=== PATIENT | female | born 1970 | race American Indian/Alaskan Native ===

== ENCOUNTER 2016-05-28 08:50 | Emergency (ER) | payer SELFPAY ==
[2016-05-28 09:06] VITALS: BP 119/65
--- NOTE | 2016-05-28 09:36 | Emergency Department Report ---
ED Back Pain/Injury HPI - General Chief Complaint: Back Pain/Injury Stated Complaint: BACK INJURY Time Seen by Provider: 05/28/16 09:35 Source: patient Limitations: No Limitations - History of Present Illness MD Complaint: back pain, back injury -: Sudden, hour(s) Similar Symptoms Previously: Yes Place: work Radiation: buttocks, left leg Severity: severe Quality: aching Consistency: constant Associated Symptoms: denies: numbness, difficulty walking, difficulty urinating , incontinence, fever/chills, nausea/vomiting - Related Data Previous Rx's Medication Instructions Recorded Last Taken Type Metaxalone [Skelaxin] 800 mg PO TID #15 tablet 05/28/16 Unknown Rx traMADol [Ultram 50 MG tab] 50 mg PO Q4HR PRN #15 tablet 05/28/16 Unknown Rx Allergies Allergy/AdvReac Type Severity Reaction Status Date / Time aspirin AdvReac HURTS Verified 05/28/16 09:08 STOMACH ED Review of Systems ROS: Stated complaint: BACK INJURY Other details as noted in HPI Constitutional: denies: chills, fever Eyes: denies: eye pain, eye discharge, vision change ENT: denies: ear pain, throat pain Respiratory: denies: cough, shortness of breath, wheezing Cardiovascular: denies: chest pain Gastrointestinal: denies: abdominal pain, nausea, vomiting, diarrhea Genitourinary: denies: dysuria Musculoskeletal: back pain Neurological: denies: headache, numbness, paresthesias, abnormal gait ED Past Medical Hx - Past Medical History Hx Diabetes: Yes - Surgical History Past Surgical History?: No - Social History Smoking Status: Never Smoker Substance Use Type: None - Medications Home Medications: Home Medications Medication Instructions Recorded Confirmed Last Taken Type Metaxalone [Skelaxin] 800 mg PO TID #15 tablet 05/28/16 Unknown Rx traMADol [Ultram 50 MG tab] 50 mg PO Q4HR PRN #15 tablet 05/28/16 Unknown Rx ED Physical Exam - General Limitations: No Limitations General appearance: alert, in no apparent distress - Head Head exam: Present: atraumatic, normocephalic - Eye Eye exam: Present: normal appearance - ENT ENT exam: Present: mucous membranes moist - Neck Neck exam: Present: normal inspection - Respiratory Respiratory exam: Present: normal lung sounds bilaterally. Absent: respiratory distress, wheezes, rales, rhonchi, stridor - Cardiovascular Cardiovascular Exam: Present: regular rate - GI/Abdominal GI/Abdominal exam: Present: soft. Absent: distended, tenderness, guarding, rebound, rigid - Extremities Exam Extremities exam: Present: normal inspection - Back Exam Back exam: Present: tenderness, paraspinal tenderness. Absent: CVA tenderness ( R), CVA tenderness (L), vertebral tenderness - Neurological Exam Neurological exam: Present: alert, oriented X3. Absent: abnormal gait ED Course Vital Signs 05/28/16 08:59 Temperature 99.5 F Pulse Rate 69 Respiratory 20 Rate Blood Pressure 119/65 O2 Sat by Pulse 100 Oximetry Critical care attestation.: If time is entered above; I have spent that time in minutes in the direct care of this critically ill patient, excluding procedure time. ED Disposition Clinical Impression: Back strain Disposition: DISCHARGED TO HOME OR SELFCARE Is pt being admited?: No Condition: Stable Instructions: Muscle Strain (ED) Prescriptions: Metaxalone [Skelaxin] 800 mg PO TID #15 tablet traMADol [Ultram 50 MG tab] 50 mg PO Q4HR PRN #15 tablet PRN Reason: Pain Referrals: PRIMARY CARE, [Primary Care Provider] - 3-5 Days Forms: Work/School Release Form(ED)
[2016-05-28] MEDS ORDERED: NORCO 5/325 PO ONE (09:52)
[2016-05-28] MEDS ORDERED: FLEXERIL PO ONE (09:52)
--- NOTE | 2016-05-28 10:39 | XRay Report ---
LUMBAR SPINE RADIOGRAPHS: INDICATION: Injury. COMPARISON: None similar. FINDINGS: AP and lateral lumbar spine radiographs demonstrate preserved vertebral body stature, alignment and disc heights. Nonobstructive bowel gas pattern. Constipation not excluded. Normal bilateral SI joints. Clear visualized lung bases. CONCLUSION: No acute lumbar radiographic abnormality. Thank you for the opportunity to participate in this patient's care.
--- NOTE | 2016-05-28 10:41 | XRay Report ---
THORACIC SPINE RADIOGRAPHS INDICATION: Injury. COMPARISON: None similar. FINDINGS: AP and lateral views to evaluate thoracic spine demonstrate preserved vertebral body stature and alignment. Normal disc heights. Symmetric pedicles. Intact costovertebral articulations. No abnormal paraspinal density. Normal imaged heart. Clear visualized lungs. CONCLUSION: Normal thoracic spine radiographs, as described. Thank you for the opportunity to participate in this patient's care.
== END 2016-05-28 11:00 | disposition home or self-care (01) ==
LOC: ED 08:50
DX: S39.012A Strain of muscle, fascia and tendon of lower back, initial encounter (principal); E11.9 Type 2 diabetes mellitus without complications; Y93.89 Activity, other specified; X58.XXXA Exposure to other specified factors, initial encounter; Z88.6 Allergy status to analgesic agent; Y92.89 Other specified places as the place of occurrence of the external cause; Y99.8 Other external cause status
CPT/HCPCS: 72070; 72100

== ENCOUNTER 2019-12-06 10:00 | Outpatient (CLI) | payer OTHER ==
--- NOTE | 2019-12-06 12:37 | Mammography Report ---
DIGITAL LEFT DIAGNOSTIC MAMMOGRAM WITH CAD, WITHOUT TOMOSYNTHESIS 12/06/2019 INDICATION: Post ultrasound-guided biopsy x2 TECHNIQUE: Digital left mammographic imaging was performed. This examination was interpreted with the benefit of Computer-aided Detection analysis. COMPARISON: Left mammogram 11/02/2019 Breast Density: The breasts are heterogeneously dense, which may obscure small masses. FINDINGS: Biopsy clips are now seen associated with the most superior in the most inferior of these 3 nodules noted previously. The third nodule more centrally is less apparent but could be obscured str anding related to the procedure. IMPRESSION: Appropriate clip placement Follow up recommendation: Per biopsy results Post biopsy imaging. A "normal" or negative report should not discourage follow up or biopsy of a clinically significant f inding. A written summary of these findings will be mailed to the patient. The patient will be entered into a mammography reporting system which will generate a reminder letter for the patient's next appointmen t at the appropriate interval. According to the [employer], yearly mammograms are recommended starting at age 40 and continuing as long as a woman is in good health. Breast MRI is recommended for women with an oleg roximately 20-25% or greater lifetime risk of breast cancer, including women with a strong family his tory of breast or ovarian cancer and women who have been treated for Hodgkin's disease. Signer Name: Srinivasa Cuevas MD Signed: 12/06/2019 12:32 PM Workstation Name: [id number]
--- NOTE | 2019-12-06 12:40 | Ultrasound Report ---
ULTRASOUND-GUIDED LEFT BREAST BIOPSY x2 INDICATION: Mildly suspicious left breast nodules on outside imaging COMPARISON: Outside left breast ultrasound 11/02/2019, outside left mammogram 11/02/2019 CONSENT: Procedure was discussed at length in advance with the patient. Possible risks and benefits w ere discussed including the possibility of bleeding. Postbiopsy care was discussed. Opportunity for q uestions was provided. Patient is not on anticoagulant therapy and reports no pertinent allergies. PROCEDURE: Timeout was performed. The areas of concern at 10:00 then subareolar 9:00 were separately targeted sonographically. Using aseptic technique and under local anesthesia, with real-time sonograp hic guidance, the nodules were biopsied. Multiple specimens were obtained with a 14-gauge Achieve and Bard biopsy devices and sent to pathology for analysis. A metallic clip was placed at the end of the procedure at each site. Sites were secured and the patient was sent for post biopsy mammogram. Jocelyn nt tolerated the procedure well and left the department in good condition. IMPRESSION: Successful ultrasound-guided left breast biopsy x2 Signer Name: Srinivasa Cuevas MD Signed: 12/06/2019 12:35 PM Workstation Name: [id number]
--- NOTE | 2019-12-08 13:15 | Ultrasound Report ---
DIGITAL LEFT DIAGNOSTIC MAMMOGRAM WITH CAD, WITHOUT TOMOSYNTHESIS 12/06/2019 INDICATION: Post ultrasound-guided biopsy x2 TECHNIQUE: Digital left mammographic imaging was performed. This examination was interpreted with the benefit of Computer-aided Detection analysis. COMPARISON: Left outside mammogram 11/02/2019 Breast Density: The breasts are heterogeneously dense, which may obscure small masses. FINDINGS: Biopsy clips are now seen associated with the most superior in the most inferior of these 3 nodules noted previously. The third nodule more centrally is less apparent but could be obscured str anding related to the procedure. IMPRESSION: Clip placement appears appropriate Follow up recommendation: Per biopsy results Post biopsy imaging. A "normal" or negative report should not discourage follow up or biopsy of a clinically significant f inding. A written summary of these findings will be mailed to the patient. The patient will be entered into a mammography reporting system which will generate a reminder letter for the patient's next appointmen t at the appropriate interval. According to the [employer], yearly mammograms are recommended starting at age 40 and continuing as long as a woman is in good health. Breast MRI is recommended for women with an oleg roximately 20-25% or greater lifetime risk of breast cancer, including women with a strong family his tory of breast or ovarian cancer and women who have been treated for Hodgkin's disease. Signer Name: Srinivasa Cuevas MD Signed: 12/06/2019 12:11 PM Workstation Name: [id number]
== END 2019-12-06 10:01 | disposition home or self-care (01) ==
LOC: SPVWC 10:00
PROVIDERS: ATTEND Surgery
DX: N63.22 Unspecified lump in the left breast, upper inner quadrant (principal); D24.2 Benign neoplasm of left breast; E11.9 Type 2 diabetes mellitus without complications; E78.5 Hyperlipidemia, unspecified; I71.02 Dissection of abdominal aorta; Z79.899 Other long term (current) drug therapy; Z87.01 Personal history of pneumonia (recurrent); Z88.6 Allergy status to analgesic agent; Z79.84 Long term (current) use of oral hypoglycemic drugs
CPT/HCPCS: 88305

== ENCOUNTER 2019-12-13 09:59 | Outpatient (CLI) | payer OTHER ==
--- NOTE | 2019-12-13 12:30 | Mammography Report ---
DIGITAL DIAGNOSTIC MAMMOGRAM WITH CAD, -- 12/13/2019 INDICATION: Postbiopsy mammogram following right breast ultrasound-guided biopsy. TECHNIQUE: Digital right mammographic imaging was performed. This examination was interpreted with the benefit of Computer-aided Detection analysis. COMPARISON: Prior mammograms 10/05/2019 and 11/02/2019 FINDINGS: Breast Density: The breasts are heterogeneously dense, which may obscure small masses. Postbiopsy mammogram reveals a biopsy clip appropriately positioned at site of previously described l obulated oval mass in the 7-8 o'clock right breast. IMPRESSION: 1. Appropriately positioned biopsy clip following right breast ultrasound-guided biopsy. Follow up recommendation: No recall. Post biopsy imaging. A "normal" or negative report should not discourage follow up or biopsy of a clinically significant f inding. A written summary of these findings will be mailed to the patient. The patient will be entered into a mammography reporting system which will generate a reminder letter for the patient's next appointmen t at the appropriate interval. According to the [employer], yearly mammograms are recommended starting at age 40 and continuing as long as a woman is in good health. Breast MRI is recommended for women with an oleg roximately 20-25% or greater lifetime risk of breast cancer, including women with a strong family his tory of breast or ovarian cancer and women who have been treated for Hodgkin's disease. Signer Name: Eulalia Tim MD Signed: 12/13/2019 12:25 PM Workstation Name: [id number]
--- NOTE | 2019-12-13 16:52 | Ultrasound Report ---
RIGHT BREAST ULTRASOUND GUIDED BIOPSY The procedure was explained to the patient and informed consent obtained. PROCEDURE: Using sonographic guidance, the lesion in the 8:00 position of the right breast was ident ified. 5 mL of 1% buffered lidocaine and 5 mL 1% lidocaine with epinephrine was administered and a s mall skin roberto was made with a scalpel. Using a 14 gauge biopsy device, multiple core biopsy samples were obtained. The specimens were placed in a 10% formalin solution and sent for histologic analysis . A radio opaque marker clip was placed at the biopsy site. Pressure was held on the biopsy site utilizing the sterile 4 x 4 gauze until all bleeding subsided. A gauze dressing was placed over the biopsy site to provide a pressure dressing. Postbiopsy instructio ns were reviewed with the patient and a copy given to her. No immediate complications occurred. INTERPRETATION: Images made real-time during the procedure demonstrate the biopsy device to be appro priately centered within the lesion. Impression: 1. Successful right breast ultrasound-guided biopsy. Pathology pending. Signer Name: Eulalia Tim MD Signed: 12/13/2019 4:47 PM Workstation Name: [id number]
== END 2019-12-13 10:00 | disposition home or self-care (01) ==
LOC: SPVWC 09:59
PROVIDERS: ATTEND Surgery
DX: N63.13 Unspecified lump in the right breast, lower outer quadrant (principal); E11.9 Type 2 diabetes mellitus without complications; E78.5 Hyperlipidemia, unspecified; Z79.84 Long term (current) use of oral hypoglycemic drugs; Z79.899 Other long term (current) drug therapy; Z88.6 Allergy status to analgesic agent; Z87.01 Personal history of pneumonia (recurrent)
CPT/HCPCS: 88305

== ENCOUNTER 2020-10-17 00:07 | Emergency (ER) | payer OTHER ==
[2020-10-17 02:02] VITALS: BP 106/53
[2020-10-17 02:19] LABS: Basophils # (Auto) 0.1 K/mm3 (0.0-0.1); Basophils % (Auto) 0.6 % (0.0-1.8); Eosinophils # (Auto) 0.2 K/mm3 (0.0-0.4); Eosinophils % (Auto) 2.7 % (0.0-4.3); Hematocrit 35.9 % (30.3-42.9); Hemoglobin 11.7 gm/dl (10.1-14.3); Lymphocytes # (Auto) 3.4 K/mm3 (1.2-5.4); Lymphocytes % (Auto) 40.7 % (13.4-35.0); Mean Corpuscular HGB Conc 33 % (30-34); Mean Corpuscular Volume 83 fl (79-97); Monocytes # (Auto) 0.5 K/mm3 (0.0-0.8); Monocytes % (Auto) 5.5 % (0.0-7.3); Platelet Count 268 K/mm3 (140-440); Red Blood Count 4.32 M/mm3 (3.65-5.03); Red Cell Distribution Width 14.2 % (13.2-15.2)
--- NOTE | 2020-10-17 02:38 | XRay Report ---
CHEST 2 VIEWS INDICATION / CLINICAL INFORMATION: CP. COMPARISON: None available. FINDINGS: SUPPORT DEVICES: None. HEART / MEDIASTINUM: No significant abnormality. LUNGS / PLEURA: No significant pulmonary or pleural abnormality. No pneumothorax. ADDITIONAL FINDINGS: No significant additional findings. IMPRESSION: 1. No acute findings. Signer Name: Herbert Urena MD Signed: 10/17/2020 2:34 AM Workstation Name: [id number]
[2020-10-17 02:42] LABS: Alanine Aminotransferase 10 units/L (7-56); Albumin 4.5 g/dL (3.9-5); Blood Urea Nitrogen 8 mg/dL (7-17); Calcium 9.2 mg/dL (8.4-10.2); Hemolysis Index 3
[2020-10-17 02:56] LABS: BUN/Creatinine Ratio 13
--- NOTE | 2020-10-18 10:01 | Electrocardiograph Report ---
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
== END 2020-10-17 10:27 | disposition left against medical advice (07) ==
LOC: ED 00:07
DX: R07.9 Chest pain, unspecified (principal); Z53.21 Procedure and treatment not carried out due to patient leaving prior to being seen by health care provider
CPT/HCPCS: 36415; 71046; 80053; 82962; 84484; 85025; 93005

== ENCOUNTER 2020-10-17 17:53 | Emergency (ER) | payer OTHER ==
--- NOTE | 2020-10-17 18:13 | Event Note ---
ED Screening Note Date of service: 10/17/20 Time: 18:11 ED Screening Note: 50-year-old female presents to the ER today with complaints of chest pain. Patient states that her symptoms started yesterday. She states that she came to the ER early this morning for her symptoms, but because of the wait time she left. She states that she has had a cough for 2 weeks but the pain that she started yesterday. She appears to be in some mild respiratory distress but denies any shortness of breath. She reports chills but no fever at home and she states that her blood pressure was running low. She denies any history of heart disease. She reports no PE or DVT risk factors. This initial assessment/diagnostic orders/clinical plan/treatment(s) is/are subject to change based on patients health status, clinical progression and re- assessment by fellow clinical providers in the ED. Further treatment and workup at subsequent clinical providers discretion. Patient/guardian urged not to elope from the ED as their condition may be serious if not clinically assessed and managed. Initial orders include: Chest pain order set
[2020-10-17 18:50] LABS: Basophils # (Auto) 0.1 K/mm3 (0.0-0.1); Basophils % (Auto) 1.6 % (0.0-1.8); Eosinophils # (Auto) 0.2 K/mm3 (0.0-0.4); Eosinophils % (Auto) 2.4 % (0.0-4.3); Hematocrit 36.8 % (30.3-42.9); Hemoglobin 12.1 gm/dl (10.1-14.3); Lymphocytes # (Auto) 2.5 K/mm3 (1.2-5.4); Lymphocytes % (Auto) 39.5 % (13.4-35.0); Mean Corpuscular HGB Conc 33 % (30-34); Mean Corpuscular Volume 83 fl (79-97); Monocytes # (Auto) 0.3 K/mm3 (0.0-0.8); Monocytes % (Auto) 4.7 % (0.0-7.3); Platelet Count 278 K/mm3 (140-440); Red Blood Count 4.45 M/mm3 (3.65-5.03)
[2020-10-17 18:56] LABS: Alanine Aminotransferase 10 units/L (7-56); Albumin 4.2 g/dL (3.9-5); Blood Urea Nitrogen 7 mg/dL (7-17); Hemolysis Index 4
[2020-10-17 19:05] LABS: BUN/Creatinine Ratio 12
--- NOTE | 2020-10-18 10:17 | Electrocardiograph Report ---
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
[2020-10-18 17:20] VITALS: BP 139/68
== END 2020-10-18 20:23 | disposition left against medical advice (07) ==
LOC: ED 17:53
DX: R07.9 Chest pain, unspecified (principal); Z53.21 Procedure and treatment not carried out due to patient leaving prior to being seen by health care provider
CPT/HCPCS: 36415; 71046; 80053; 82962; 84484; 85025; 93005